=== PATIENT | male | born 1980 | race Caucasian/White ===

== ENCOUNTER 2016-11-25 19:52 | Emergency (ER) | payer OTHER ==
[2016-11-25] MEDS ORDERED: PENICILLIN V POTASSIUM 250 MG TAB As Ordered ONE (22:23)
--- NOTE | 2016-11-25 22:43 | EDDOCDS ---
Nurse's Notes [facility] Name: Dhruv William Age: 36 yrs Sex: Male : 1980 Arrival Date: 11/25/2016 Time: 19:52 Bed I10 / 23 Private MD: NO PRIMARY PHYSICIAN, . Diagnosis: Dental caries;Jaw pain;Disease of jaws, unspecified Presentation: 11/25 19:57 Presenting complaint: Patient states: that he has an abscess in his mouth. Pt states ms18 that it has been there for approx 2 days. Adult Sepsis Screening: The patient does not have new or worsening altered mentation. Patient's respiratory rate is less than 22. Systolic blood pressure is greater than 100. Patient has a qSOFA score of 0- Negative Sepsis Screen. Suicide/Homicide risk assessment- the patient denies having any suicidal and/or homicidal ideations and does not present with any other emotional, behavioral or mental health complaints. Status: Patient is not a electronic sales and service technician or dependent. Transition of care: patient was not received from another setting of care. 19:57 Acuity: JARET Level 4 ms18 19:57 Method Of Arrival: Walkin/Carried/Asstd ms18 Triage Assessment: 19:58 General: Appears in no apparent distress, comfortable, Behavior is appropriate for age, ms18 cooperative. Pain: Location: right buccal mucosa Pain currently is 8 out of 10 on a pain scale. HIV screening NA for this visit Offered previously. Neurological: No deficits noted. EENT: Oral mucosa is moist. Poor dentition noted. Respiratory: Airway is patent Respiratory effort is even, unlabored. Derm: Skin is pink, warm & dry. Historical: - Allergies: no known allergies; - Home Meds: 1. none - PMHx: none; - PSHx: Appendectomy; - Social history: Smoking status: Patient uses tobacco products, current every day smoker. No barriers to communication noted, The patient speaks fluent Pashto. - Family history: Not pertinent. - : The pt / caregiver states he / she is not on anticoagulants. Home medication list is obtained from the patient. - Exposure Risk Screening:: None identified. Screenin:56 Infection Control. dd6 22:38 Screening information is obtained from the patient. Fall risk: No risks identified. [facility] Assistance ADL's: requires no assistance with activities of daily living. Abuse/DV Screen: The patient / caregiver reports he/she is: not in a situation that causes fear, pain or injury. Nutritional screening: No deficits noted. Advance Directives: There is no active DNR order. home support is adequate. Assessment: 22:38 General: Appears in no apparent distress, comfortable, Behavior is appropriate for age, cjh cooperative. General: first contact with patient to review discharge instructions, encouraged and answered questions, denies further needs. Vital Signs: 19:53 BP 148 / 94; Pulse 103; Resp 18 S; Temp 98.1(O); Pulse Ox 98% on R/A; Weight 86.18 kg dd6 (R); Height 5 ft. 10 in. (177.80 cm) (R); Pain 6/10; 22:26 BP 145 / 91; Pulse 88 MON; Resp 18 S; Temp 98.4(TE); Pulse Ox 95% on R/A; Pain 8/10; cln 19:53 Body Mass Index 27.26 (86.18 kg, 177.80 cm) dd6 Vitals: 19:53 Log In Time: November 25, 2016 at 19:53. dd6 ED Course: 19:53 Patient visited by Philip Valdes PCA. dd6 19:53 NO PRIMARY PHYSICIAN, . is Private Physician. dd6 19:53 Patient moved to Waiting dd6 19:54 Patient visited by Philip Valdes PCA. dd6 19:54 Patient moved to Pre RCE dd6 19:58 Triage Initiated ms18 21:54 [facility]. ke 21:54 Patient visited by Ashok Roldan FNP. ke 21:54 Patient visited by Ashok Roldan FNP. ke 21:54 Patient moved to 23 ar3 22:08 Your, Dentist is Referral Physician. ke 22:27 Patient visited by pOhelia Caballero PCA. cln 22:35 [facility] [place] Agreement was scanned into [employer] and attached to record. gjb 22:38 The patient / caregiver is instructed regarding the plan of care and ED course. cj 22:38 No IV's were initiated during this patient's visit. No procedures done that require [facility] assistance. Administered Medications: 22:38 Drug: Penicillin VK 500 mg [penicillin V potassium 250 mg tablet (2 tabs)] Route: PO; [facility] 22:38 Drug: oxyCODONE-acetaminophen 4 pack 1 packets [oxycodone-acetaminophen 5 mg-325 mg [facility] tablet (1 tabs)] {Co-Signature: lf1 (Chica Garcia RN).} Route: PO; Order Results: There are currently no results for this order. Outcome: 22:09 Discharge ordered by Provider. 22:38 Discharge Assessment: Patient awake, alert and oriented x 3. No cognitive and/or [facility] functional deficits noted. Patient verbalized understanding of disposition instructions. patient administered narcotics - yes. Pt provided with safe discharge. The following High Risk Discharge criteria are identified: None. Discharged to home ambulatory. Condition: good Condition: stable. Discharge instructions given to patient, Instructed on discharge instructions, follow up and referral plans. medication usage, no driving heavy equipment, no drinking with medication. No special radiology studies were completed. Property :Personal belongings accompany Pt. 22:42 Patient left the ED. [facility] Signatures: Ashok Roldan, Philip Erickson, UMBRELLA REPAIRER UMBRELLA REPAIRER dd6 Vy Mcadams, UMBRELLA REPAIRER UMBRELLA REPAIRER ar3 Vivian Caldwell RN RN [facility] Leticia Matute RN RN ms18 Yee Marquez Crystal, UMBRELLA REPAIRER UMBRELLA REPAIRER cln Chica Garcia RN lf1 MTDD
--- NOTE | 2016-11-25 22:43 | EDDOCDS ---
Physician Documentation [facility] Name: Dhruv William Age: 36 yrs Sex: Male : 1980 Arrival Date: 11/25/2016 Time: 19:52 Bed I10 23 Private MD: NO PRIMARY PHYSICIAN, . Disposition: 11/25/16 22:09 Discharged to Home/Self Care. Impression: Dental caries, Jaw pain, Disease of jaws, unspecified. - Condition is Stable. - Discharge Instructions: Dental Pain. - Prescriptions for Percocet 5- 325 mg Oral Tablet - take 1 tablet by ORAL route every 6 hours As needed MDD: 4 tabs; 20 tablet. penicillin V potassium 500 mg Oral Tablet - take 1 tablet by ORAL route 4 times per day for 10 days; 40 tablet. - Medication Reconciliation, Local Pharmacy Hours form. - Follow up: Your, Dentist; When: Call to arrange an appointment; Reason: Recheck today's complaints, Continuance of care. - Problem is an ongoing problem. - Symptoms are unchanged. Historical: - Allergies: no known allergies; - Home Meds: 1. none - PMHx: none; - PSHx: Appendectomy; - Social history: Smoking status: Patient uses tobacco products, current every day smoker. No barriers to communication noted, The patient speaks fluent Greek. - Family history: Not pertinent. - : The pt / caregiver states he / she is not on anticoagulants. Home medication list is obtained from the patient. - Exposure Risk Screening:: None identified. Vital Signs: 11/25 19:53 BP 148 / 94; Pulse 103; Resp 18 S; Temp 98.1(O); Pulse Ox 98% on R/A; Weight 86.18 kg / dd6 189.99 lbs (R); Height 5 ft. 10 in. (177.80 cm) (R); Pain 6/10; 22:26 BP 145 / 91; Pulse 88 MON; Resp 18 S; Temp 98.4(TE); Pulse Ox 95% on R/A; Pain 8/10; cln 19:53 Body Mass Index 27.26 (86.18 kg, 177.80 cm) dd6 MDM: 22:12 Penicillin VK 500 mg PO once ordered. ke 22:12 oxyCODONE-acetaminophen 4 pack 5 mg-325 mg 1 packets PO once; Dispense with pt, take as ke per instruction on package ordered. 22:35 [facility] Payment Agreement was scanned into [employer] and attached to record. shannon 22:35 Financial registration complete. shannon Administered Medications: 22:38 Drug: Penicillin VK 500 mg [penicillin V potassium 250 mg tablet (2 tabs)] Route: PO; [facility] 22:38 Drug: oxyCODONE-acetaminophen 4 pack 1 packets [oxycodone-acetaminophen 5 mg-325 mg cj tablet (1 tabs)] {Co-Signature: lf1 (Chica Garcia RN).} Route: PO; Signatures: Ashok Roldan FNP FNP ke Hafner, Jane, RN RN Leticia Griffith RN RN ms18 Yee Marquez RN lf1 The chart was reviewed and I authenticate all verbal orders and agree with the evaluation and treatment provided.Attachments: 22:35 [facility] Payment Agreement shannon MTDD
--- NOTE | 2016-11-27 23:43 | EDDOCDS ---
Nurse's Notes [facility] Name: Dhruv William Age: 36 yrs Sex: Male : 1980 Arrival Date: 11/25/2016 Time: 19:52 Bed I10 / 23 Private MD: NO PRIMARY PHYSICIAN, . Diagnosis: Dental caries;Jaw pain;Disease of jaws, unspecified Presentation: 11/25 19:57 Presenting complaint: Patient states: that he has an abscess in his mouth. Pt states ms18 that it has been there for approx 2 days. Adult Sepsis Screening: The patient does not have new or worsening altered mentation. Patient's respiratory rate is less than 22. Systolic blood pressure is greater than 100. Patient has a qSOFA score of 0- Negative Sepsis Screen. Suicide/Homicide risk assessment- the patient denies having any suicidal and/or homicidal ideations and does not present with any other emotional, behavioral or mental health complaints. Status: Patient is not a home service technician or dependent. Transition of care: patient was not received from another setting of care. 19:57 Acuity: JARET Level 4 ms18 19:57 Method Of Arrival: Walkin/Carried/Asstd ms18 Triage Assessment: 19:58 General: Appears in no apparent distress, comfortable, Behavior is appropriate for age, ms18 cooperative. Pain: Location: right buccal mucosa Pain currently is 8 out of 10 on a pain scale. HIV screening NA for this visit Offered previously. Neurological: No deficits noted. EENT: Oral mucosa is moist. Poor dentition noted. Respiratory: Airway is patent Respiratory effort is even, unlabored. Derm: Skin is pink, warm & dry. Historical: - Allergies: no known allergies; - Home Meds: 1. none - PMHx: none; - PSHx: Appendectomy; - Social history: Smoking status: Patient uses tobacco products, current every day smoker. No barriers to communication noted, The patient speaks fluent Uzbek. - Family history: Not pertinent. - : The pt / caregiver states he / she is not on anticoagulants. Home medication list is obtained from the patient. - Exposure Risk Screening:: None identified. Screenin:56 Infection Control. dd6 22:38 Screening information is obtained from the patient. Fall risk: No risks identified. [facility] Assistance ADL's: requires no assistance with activities of daily living. Abuse/DV Screen: The patient / caregiver reports he/she is: not in a situation that causes fear, pain or injury. Nutritional screening: No deficits noted. Advance Directives: There is no active DNR order. home support is adequate. Assessment: 22:38 General: Appears in no apparent distress, comfortable, Behavior is appropriate for age, cjh cooperative. General: first contact with patient to review discharge instructions, encouraged and answered questions, denies further needs. Vital Signs: 19:53 BP 148 / 94; Pulse 103; Resp 18 S; Temp 98.1(O); Pulse Ox 98% on R/A; Weight 86.18 kg dd6 (R); Height 5 ft. 10 in. (177.80 cm) (R); Pain 6/10; 22:26 BP 145 / 91; Pulse 88 MON; Resp 18 S; Temp 98.4(TE); Pulse Ox 95% on R/A; Pain 8/10; cln 19:53 Body Mass Index 27.26 (86.18 kg, 177.80 cm) dd6 Vitals: 19:53 Log In Time: November 25, 2016 at 19:53. dd6 ED Course: 19:53 Patient visited by Philip Valdes PCA. dd6 19:53 NO PRIMARY PHYSICIAN, . is Private Physician. dd6 19:53 Patient moved to Waiting dd6 19:54 Patient visited by Philip Valdes PCA. dd6 19:54 Patient moved to Pre RCE dd6 19:58 Triage Initiated ms18 21:54 [facility]. ke 21:54 Patient visited by Ashok Roldan FNP. ke 21:54 Patient visited by Ashok Roldan FNP. ke 21:54 Patient moved to I10 23 ar3 22:08 Your, Dentist is Referral Physician. ke 22:27 Patient visited by Ophelia Caballero PCA. cln 22:35 [facility] Payment Agreement was scanned into [employer] and attached to record. gjb 22:38 The patient / caregiver is instructed regarding the plan of care and ED course. [facility] 22:38 No IV's were initiated during this patient's visit. No procedures done that require [facility] assistance. 11/26 01:45 T-Sheet-- Draft Copy was scanned into [employer] and attached to record. lja Administered Medications: 11/25 22:38 Drug: Penicillin VK 500 mg [penicillin V potassium 250 mg tablet (2 tabs)] Route: PO; [facility] 22:38 Drug: oxyCODONE-acetaminophen 4 pack 1 packets [oxycodone-acetaminophen 5 mg-325 mg cjh tablet (1 tabs)] {Co-Signature: lf1 (Chica Garcia RN).} Route: PO; Order Results: There are currently no results for this order. Outcome: 22:09 Discharge ordered by Provider. ke 22:38 Discharge Assessment: Patient awake, alert and oriented x 3. No cognitive and/or [facility] functional deficits noted. Patient verbalized understanding of disposition instructions. patient administered narcotics - yes. Pt provided with safe discharge. The following High Risk Discharge criteria are identified: None. Discharged to home ambulatory. Condition: good Condition: stable. Discharge instructions given to patient, Instructed on discharge instructions, follow up and referral plans. medication usage, no driving heavy equipment, no drinking with medication. No special radiology studies were completed. Property :Personal belongings accompany Pt. 22:42 Patient left the ED. [facility] Signatures: Ashok Roldan, FORMING PROCESS WORKER FORMING PROCESS WORKER Philip Rivera, VESSEL ORDINARY SEAMAN VESSEL ORDINARY SEAMAN dd6 Vy Mcadams, VESSEL ORDINARY SEAMAN VESSEL ORDINARY SEAMAN ar3 Vivian Caldwell RN RN [facility] Leticia Matute RN RN ms18 Areisidra, Yee Bryan Crystal, VESSEL ORDINARY SEAMAN VESSEL ORDINARY SEAMAN cln Chica Garcia RN lf1 Chart Complete MTDD
--- NOTE | 2016-11-27 23:43 | EDDOCDS ---
Physician Documentation [facility] Name: Dhruv William Age: 36 yrs Sex: Male : 1980 Arrival Date: 11/25/2016 Time: 19:52 Bed I10 23 Private MD: NO PRIMARY PHYSICIAN, . Disposition: 11/25/16 22:09 Discharged to Home/Self Care. Impression: Dental caries, Jaw pain, Disease of jaws, unspecified. - Condition is Stable. - Discharge Instructions: Dental Pain. - Prescriptions for Percocet 5- 325 mg Oral Tablet - take 1 tablet by ORAL route every 6 hours As needed MDD: 4 tabs; 20 tablet. penicillin V potassium 500 mg Oral Tablet - take 1 tablet by ORAL route 4 times per day for 10 days; 40 tablet. - Medication Reconciliation, Local Pharmacy Hours form. - Follow up: Your, Dentist; When: Call to arrange an appointment; Reason: Recheck today's complaints, Continuance of care. - Problem is an ongoing problem. - Symptoms are unchanged. Historical: - Allergies: no known allergies; - Home Meds: 1. none - PMHx: none; - PSHx: Appendectomy; - Social history: Smoking status: Patient uses tobacco products, current every day smoker. No barriers to communication noted, The patient speaks fluent Greek. - Family history: Not pertinent. - : The pt / caregiver states he / she is not on anticoagulants. Home medication list is obtained from the patient. - Exposure Risk Screening:: None identified. Vital Signs: 11/25 19:53 BP 148 / 94; Pulse 103; Resp 18 S; Temp 98.1(O); Pulse Ox 98% on R/A; Weight 86.18 kg / dd6 189.99 lbs (R); Height 5 ft. 10 in. (177.80 cm) (R); Pain 6/10; 22:26 BP 145 / 91; Pulse 88 MON; Resp 18 S; Temp 98.4(TE); Pulse Ox 95% on R/A; Pain 8/10; cln 19:53 Body Mass Index 27.26 (86.18 kg, 177.80 cm) dd6 MDM: 22:12 Penicillin VK 500 mg PO once ordered. ke 22:12 oxyCODONE-acetaminophen 4 pack 5 mg-325 mg 1 packets PO once; Dispense with pt, take as ke per instruction on package ordered. 22:35 [facility] Payment Agreement was scanned into [employer] and attached to record. [facility] 22:35 Financial registration complete. [facility] 11/26 01:45 T-Sheet-- Draft Copy was scanned into [employer] and attached to record. lja Administered Medications: 11/25 22:38 Drug: Penicillin VK 500 mg [penicillin V potassium 250 mg tablet (2 tabs)] Route: PO; cjh 22:38 Drug: oxyCODONE-acetaminophen 4 pack 1 packets [oxycodone-acetaminophen 5 mg-325 mg cjh tablet (1 tabs)] {Co-Signature: lf1 (Chica Garcia RN).} Route: PO; Signatures: Ashok Roldan FNP FNP ke Hafner, JaneRN ESTELLE [facility] Leticia Matute RN RN ms18 Arel, Yee Bryan [facility] Chica Garcia RN lf1 The chart was reviewed and I authenticate all verbal orders and agree with the evaluation and treatment provided.Attachments: 22:35 [facility] Payment Agreement [facility] 11/26 01:45 T-Sheet-- Draft Copy richard Chart Complete MTDD
--- NOTE | 2016-11-27 23:43 | EDDOCDS ---
Physician Documentation [facility] Name: Dhruv William Age: 36 yrs Sex: Male : 1980 Arrival Date: 11/25/2016 Time: 19:52 Bed I10 23 Private MD: NO PRIMARY PHYSICIAN, . Disposition: 11/25/16 22:09 Discharged to Home/Self Care. Impression: Dental caries, Jaw pain, Disease of jaws, unspecified. - Condition is Stable. - Discharge Instructions: Dental Pain. - Prescriptions for Percocet 5- 325 mg Oral Tablet - take 1 tablet by ORAL route every 6 hours As needed MDD: 4 tabs; 20 tablet. penicillin V potassium 500 mg Oral Tablet - take 1 tablet by ORAL route 4 times per day for 10 days; 40 tablet. - Medication Reconciliation, Local Pharmacy Hours form. - Follow up: Your, Dentist; When: Call to arrange an appointment; Reason: Recheck today's complaints, Continuance of care. - Problem is an ongoing problem. - Symptoms are unchanged. Historical: - Allergies: no known allergies; - Home Meds: 1. none - PMHx: none; - PSHx: Appendectomy; - Social history: Smoking status: Patient uses tobacco products, current every day smoker. No barriers to communication noted, The patient speaks fluent Prydeinig. - Family history: Not pertinent. - : The pt / caregiver states he / she is not on anticoagulants. Home medication list is obtained from the patient. - Exposure Risk Screening:: None identified. Vital Signs: 11/25 19:53 BP 148 / 94; Pulse 103; Resp 18 S; Temp 98.1(O); Pulse Ox 98% on R/A; Weight 86.18 kg / dd6 189.99 lbs (R); Height 5 ft. 10 in. (177.80 cm) (R); Pain 6/10; 22:26 BP 145 / 91; Pulse 88 MON; Resp 18 S; Temp 98.4(TE); Pulse Ox 95% on R/A; Pain 8/10; cln 19:53 Body Mass Index 27.26 (86.18 kg, 177.80 cm) dd6 MDM: 22:12 Penicillin VK 500 mg PO once ordered. ke 22:12 oxyCODONE-acetaminophen 4 pack 5 mg-325 mg 1 packets PO once; Dispense with pt, take as ke per instruction on package ordered. 22:35 [facility] Payment Agreement was scanned into [employer] and attached to record. [facility] 22:35 Financial registration complete. [facility] 11/26 01:45 T-Sheet-- Draft Copy was scanned into [employer] and attached to record. lja Administered Medications: 11/25 22:38 Drug: Penicillin VK 500 mg [penicillin V potassium 250 mg tablet (2 tabs)] Route: PO; cjh 22:38 Drug: oxyCODONE-acetaminophen 4 pack 1 packets [oxycodone-acetaminophen 5 mg-325 mg cjh tablet (1 tabs)] {Co-Signature: lf1 (Chica Garcia RN).} Route: PO; Signatures: Ashok Roldan FNP FNP ke Hafner, JaneRN ESTELLE [facility] Leticia Matute RN RN ms18 Arel, Yee Bryan [facility] Chica Garcia RN lf1 The chart was reviewed and I authenticate all verbal orders and agree with the evaluation and treatment provided.Attachments: 22:35 [facility] Payment Agreement [facility] 11/26 01:45 T-Sheet-- Draft Copy richard Chart Complete MTDD
== END 2016-11-25 22:42 | disposition home or self-care (01) ==
LOC: M ED 19:52
DX: K04.7 Periapical abscess without sinus (principal); G50.1 Atypical facial pain; K08.9 Disorder of teeth and supporting structures, unspecified; R68.84 Jaw pain; Z90.89 Acquired absence of other organs; Z72.0 Tobacco use

== ENCOUNTER 2016-12-08 12:37 | Emergency (ER) | payer OTHER ==
[2016-12-08] MEDS ORDERED: ISOVUE-370 76% 100ML VIAL (Q9967) As Ordered ONE (14:04)
[2016-12-08] MEDS ORDERED: NORCO, ANEXSIA 5/325MG TABLET (HYDROcodone/ACETAMINOPHEN) As Ordered ONE (14:06)
[2016-12-08] MEDS ORDERED: ZOSYN 3.375 GM VIAL (J2543) As Ordered ONE (14:06)
[2016-12-08 14:10] LABS: BASO # 0.1 K/mm3 (0.0-0.2); BASO % 1.3 % (0.0-1.0); EOS # 0.4 K/mm3 (0.0-0.50); EOS % 5.1 % (0.0-3.0); LARGE UNSTAINED CELL # 0.2 K/mm3 (0.0-0.4); LARGE UNSTAINED CELL % 2.2 % (0.0-4.0); LYMPH # 2.4 K/mm3 (1.5-4.5); LYMPH % 29.1 % (24.0-44.0); MEAN CORPUSCULAR HEMOGLOBIN 29.5 pg (27.0-33.0); MEAN CORPUSCULAR HGB CONC 33.9 g/dl (32.0-36.5); MEAN CORPUSCULAR VOLUME 87.1 fl (80.0-96.0); MONO # 0.5 K/mm3 (0.0-0.8); MONO % 5.6 % (0.0-5.0); NEUTROPHILS # 4.6 K/mm3 (1.8-7.7); NEUTROPHILS % 56.7 % (36.0-66.0); PLATELET COUNT, AUTOMATED 280 k/mm3 (150-450); RED CELL DISTRIBUTION WIDTH 12.9 % (11.5-14.5); WHITE BLOOD COUNT 8.2 K/mm3 (4.0-10.0)
--- NOTE | 2016-12-08 14:36 | REP ---
Clinical: Right facial swelling. Technique: Axial contrast enhanced images from the skull base to the thoracic inlet with coronal and sagittal re-formations using 100 ml Isovue 370 intravenous contrast material. Findings: The subcutaneous tissues appear relatively symmetric and normal by CT evaluation. No significant subcutaneous infiltration / stranding or edematous changes are appreciated. The bilateral periorbital soft tissues are symmetric and normal. Orbits including globes and intraconal contents are symmetric and unremarkable. The nasopharyngeal through hypopharyngeal airway appears patent, midline and without associated mass effect. No parapharyngeal or retropharyngeal soft tissue swelling is appreciated. The bilateral parapharyngeal fat pads are symmetric and normal. Cervical chain lymph nodes appear mildly prominent measuring up to 13 mm maximal diameter and should be correlated with physical examination to exclude an infectious process. The parotid, submandibular, and submental glands are symmetric and normal. The vasculature is symmetric and unremarkable. The osseous structures are intact without evidence for acute fracture or dislocation. Sinuses demonstrate minimal mucosal thickening to the right ethmoid and sphenoid sinus minimal thickening to the left maxillary sinus suggesting mild chronic sinus disease. No fluid level is appreciated. Impression: Mild prominent bilateral cervical lymph nodes should be correlated with physical examination. Otherwise normal examination. Signed by Kirill Delgado MD 12/08/2016 02:27 P
[2016-12-08 14:54] LABS: ERYTHROCYTE SEDIMENTATION RATE 2 mm/hr (0-15)
--- NOTE | 2016-12-08 16:57 | EDDOCDS ---
Physician Documentation [facility] Name: Dhruv William Age: 36 yrs Sex: Male : 1980 Arrival Date: 12/08/2016 Time: 12:37 Bed I9 / 22 Private MD: NO PRIMARY PHYSICIAN, . Disposition: 12/08 16:44 Critical Care: Critical care not applicable. le Disposition: 12/08/16 16:41 Discharged to Home/Self Care. Impression: Jaw pain, Dental caries. - Condition is Stable. - Discharge Instructions: Dental Pain. - Prescriptions for Augmentin 875- 125 mg Oral Tablet - take 1 tablet by ORAL route every 12 hours for 10 days; 20 tablet. [place] 5- 325 mg Oral Tablet - take 1 tablet by ORAL route every 6 hours As needed MDD: 4 tabs; 6 tablet. - Medication Reconciliation, Local Pharmacy Hours, Dental Referral List form. - Follow up: Tirso Julian; When: Call to arrange an appointment; Reason: Recheck today's complaints, Continuance of care. - Problem is an ongoing problem. - Symptoms have improved. - Notes: You need to take the antibiotic as directed. DO NOT SKIP DOSES! Use the referral list, to get a dental appointment. Make this appointment even if they say it's going to be "weeks". Return to the ED for worsening pain, inability to open your mouth more than the width of 2 finders, worsening swelling, fever >101.5, difficulty swallowing/drooling, difficulty breathing or any other concerns Historical: - Allergies: no known allergies; - Home Meds: 1. none - PMHx: none; - PSHx: Appendectomy; - Social history: Smoking status: Patient uses tobacco products, light tobacco smoker. No barriers to communication noted, The patient speaks fluent Moldovan. - Family history: No immediate family members are acutely ill. - : The pt / caregiver states he / she is not on anticoagulants. Home medication list is obtained from the patient. - Exposure Risk Screening:: None identified. Vital Signs: 12:39 BP 157 / 95; Pulse 82; Resp 18; Temp 98.8; Pulse Ox 99% ; Weight 94.8 kg / 209 lbs; elp Height 5 ft. 11 in. (180.34 cm); Pain 10/10; 15:47 BP 154 / 84 RA Sitting (auto/reg); Pulse 81; Resp 18; Temp 98.0(TE); Pulse Ox 98% on jrd R/A; Pain 8/10; 16:55 BP 164 / 94; Pulse 18; Resp 79; Temp 97.8; Pulse Ox 98% ; Pain 2/10; hs1 12:39 Body Mass Index 29.15 (94.80 kg, 180.34 cm) elp MDM: 13:46 IV Saline Lock ordered. le 13:46 Piperacillin-Tazobactam 3.375 grams IVPB once over 30 mins; dilute in 50mL of NS or D5W le ordered. 13:46 HYDROcodone-acetaminophen 5 mg-325 mg 1 tabs PO once ordered. le 13:47 CT Neck With Contrast Ordered. EDMS 13:47 CBC with Diff Ordered. EDMS 13:47 CRP Ordered. EDMS 13:47 ESR Ordered. EDMS 14:50 CBC with Diff Reviewed. le 14:50 CRP Reviewed. le 15:11 [facility] Payment Agreement was scanned into [employer] and attached to record. 5 15:11 Financial registration complete. jp5 16:39 CBC with Diff Reviewed. le 16:39 ESR Reviewed. le 16:39 CT Neck With Contrast Reviewed. le Administered Medications: 14:18 Drug: Piperacillin-Tazobactam 3.375 grams [piperacillin-tazobactam 3.375 gram ms2 intravenous solution] Route: IVPB; Infused Over: 30 mins; Site: left antecubital; 14:18 Drug: HYDROcodone-acetaminophen 1 tabs [hydrocodone 5 mg-acetaminophen 325 mg tablet (1 ms2 tabs)] Route: PO; Signatures: Dispatcher [employer] EDMS Chica Green, JAPANESE INTERPRETER JAPANESE INTERPRETER Perla CabreraRN RN rs3 Josette Chacon RN RN hs1 Silvana Velazco jp5 Ru Boston RN ms2 The chart was reviewed and I authenticate all verbal orders and agree with the evaluation and treatment provided.Attachments: 15:11 [facility] Payment Agreement jp5 MTDD
--- NOTE | 2016-12-08 16:57 | EDDOCDS ---
Nurse's Notes [facility] Name: Dhruv William Age: 36 yrs Sex: Male : 1980 Arrival Date: 12/08/2016 Time: 12:37 Bed I9 / 22 Private MD: NO PRIMARY PHYSICIAN, . Diagnosis: Jaw pain;Dental caries Presentation: 12/08 12:45 Presenting complaint: Patient states: runny nose, cough, muscle ache and vomiting for 3 rs3 days. not resolved with NyQuil and ibuprofen. Adult Sepsis Screening: The patient does not have new or worsening altered mentation. Patient's respiratory rate is less than 22. Systolic blood pressure is greater than 100. Patient has a qSOFA score of 0- Negative Sepsis Screen. Suicide/Homicide risk assessment- the patient denies having any suicidal and/or homicidal ideations and does not present with any other emotional, behavioral or mental health complaints. Status: Patient is not a statement services representative or dependent. Transition of care: patient was not received from another setting of care. 12:45 Acuity: JARET Level 4 rs3 12:45 Method Of Arrival: Walkin/Carried/Asstd rs3 Triage Assessment: 12:47 General: Appears in no apparent distress. Pain: Location: generalized. Pt Declines HIV rs3 testing. Historical: - Allergies: no known allergies; - Home Meds: 1. none - PMHx: none; - PSHx: Appendectomy; - Social history: Smoking status: Patient uses tobacco products, light tobacco smoker. No barriers to communication noted, The patient speaks fluent [place]. - Family history: No immediate family members are acutely ill. - : The pt / caregiver states he / she is not on anticoagulants. Home medication list is obtained from the patient. - Exposure Risk Screening:: None identified. Screenin:39 Infection Control. elp 14:21 Screening information is obtained from prior medical records. Fall risk: No risks ms2 identified. Assistance ADL's: requires no assistance with activities of daily living. Abuse/DV Screen: The patient / caregiver reports he/she is: not in a situation that causes fear, pain or injury. Nutritional screening: No deficits noted. Advance Directives: Currently, there is no health care proxy. There is no active DNR order. There is no living will. There is no Power of Retirement Administrator. Advance directive information has not previously been placed in an [facility] medical record. Further advance directive information is declined. home support is adequate. Assessment: 14:19 Adult Sepsis Screening: The patient does not have new or worsening altered mentation. ms2 Patient's respiratory rate is less than 22. Systolic blood pressure is greater than 100. Patient has a qSOFA score of 0- Negative Sepsis Screen. General: Appears uncomfortable, Behavior is cooperative. General: medicated for pain per order. Pain: Pain currently is 9 out of 10 on a pain scale. Neurological: Level of Consciousness is awake, alert, obeys commands. Respiratory: No deficits noted. Airway is patent Respiratory effort is even, unlabored, Respiratory pattern is regular, symmetrical. GI: Abdomen is flat, non- distended. Derm: Skin is pink, warm & dry. Musculoskeletal: Range of motion intact in all extremities. 15:15 General: Appears in no apparent distress, appears more comfortable. Pain: Pain ms2 currently is 8 out of 10 on a pain scale. Neurological: No deficits noted. Respiratory: No deficits noted. Derm: Skin is pink, warm & dry. 15:42 Reassessment: Patient appears in no apparent distress at this time. Patient resting in hs1 stretcher aware of waiting for CT results. Patient states he is in 7/10 pain at present. No other needs noted. Patient appears comfortable texting on stretcher with no other needs at present. . 16:54 Reassessment: Patient appears in no apparent distress at this time. Patient states hs1 feeling better. Patient states symptoms have improved. Vital Signs: 12:39 BP 157 / 95; Pulse 82; Resp 18; Temp 98.8; Pulse Ox 99% ; Weight 94.8 kg; Height 5 ft. elp 11 in. (180.34 cm); Pain 10/10; 15:47 BP 154 / 84 RA Sitting (auto/reg); Pulse 81; Resp 18; Temp 98.0(TE); Pulse Ox 98% on jrd R/A; Pain 8/10; 16:55 BP 164 / 94; Pulse 18; Resp 79; Temp 97.8; Pulse Ox 98% ; Pain 2/10; hs1 12:39 Body Mass Index 29.15 (94.80 kg, 180.34 cm) [facility] Vitals: 12:39 Log In Time: December 08, 2016 at 12:36. elp ED Course: 12:38 Patient visited by Lora Lynn PCA. elp 12:38 NO PRIMARY PHYSICIAN, . is Private Physician. elp 12:38 Patient moved to Waiting elp 12:39 Patient visited by Lora Lynn PCA. elp 12:39 Patient moved to Pre RCE elp 12:47 Triage Initiated rs3 13:12 Chica Green FNP is PHCP. le 13:12 Patient moved to I / mcp 13:34 Patient visited by Chica Green FNP. le 13:34 Patient visited by Chica Green FNP. le 14:01 Patient visited by Ru Boston,ESTELLE. ms2 14:01 ESR Sent. ms2 14:01 CRP Sent. ms2 14:01 CBC with Diff Sent. ms2 14:01 Inserted saline lock: 20 gauge in left antecubital area The patient tolerated the ms2 procedure well. 14:18 Patient visited by Ru Boston,ESTELLE. ms2 14:21 No procedures done that require assistance. ms2 14:53 Patient visited by Leticia Matute RN. ms18 15:06 CT Neck With Contrast Returned. EDMS 15:11 [facility] Payment Agreement was scanned into [employer] and attached to record. jp5 15:15 The patient / caregiver is instructed regarding the plan of care and ED course. ms2 15:42 Patient visited by Josette Chacon, ESTELLE. hs1 15:48 Patient visited by Wiley Hoang PCA. jrd 15:56 Patient visited by Ru Boston,ESTELLE. ms2 16:41 Tirso Julian is Referral Physician. le 16:54 Discontinued IV lock intact, bleeding controlled, pressure dressing applied, No hs1 redness/swelling at site. Administered Medications: 14:18 Drug: Piperacillin-Tazobactam 3.375 grams [piperacillin-tazobactam 3.375 gram ms2 intravenous solution] Route: IVPB; Infused Over: 30 mins; Site: left antecubital; 14:18 Drug: HYDROcodone-acetaminophen 1 tabs [hydrocodone 5 mg-acetaminophen 325 mg tablet (1 ms2 tabs)] Route: PO; Order Results: Lab Order: CBC with Diff; SPEC'M 01/15/17 13:55 Test: WHITE BLOOD COUNT; Value: 8.2; Range: 4.0-10.0; Units: K/mm3; Status: F Test: RED BLOOD COUNT; Value: 5.46; Range: 4.30-6.10; Units: M/mm3; Status: F Test: HEMOGLOBIN; Value: 16.1; Range: 14.0-18.0; Units: g/dl; Status: F Test: HEMATOCRIT; Value: 47.6; Range: 42.0-52.0; Units: %; Status: F Test: MEAN CORPUSCULAR VOLUME; Value: 87.1; Range: 80.0-96.0; Units: fl; Status: F Test: MEAN CORPUSCULAR HEMOGLOBIN; Value: 29.5; Range: 27.0-33.0; Units: pg; Status: F Test: MEAN CORPUSCULAR HGB CONC; Value: 33.9; Range: 32.0-36.5; Units: g/dl; Status: F Test: RED CELL DISTRIBUTION WIDTH; Value: 12.9; Range: 11.5-14.5; Units: %; Status: F Test: PLATELET COUNT, AUTOMATED; Value: 280; Range: 150-450; Units: k/mm3; Status: F Test: NEUTROPHILS %; Value: 56.7; Range: 36.0-66.0; Units: %; Status: F Test: LYMPH %; Value: 29.1; Range: 24.0-44.0; Units: %; Status: F Test: MONO %; Value: 5.6; Range: 0.0-5.0; Abnormal: Above high normal; Units: %; Status: F Test: EOS %; Value: 5.1; Range: 0.0-3.0; Abnormal: Above high normal; Units: %; Status: F Test: BASO %; Value: 1.3; Range: 0.0-1.0; Abnormal: Above high normal; Units: %; Status: F Test: LARGE UNSTAINED CELL %; Value: 2.2; Range: 0.0-4.0; Units: %; Status: F Test: NEUTROPHILS #; Value: 4.6; Range: 1.8-7.7; Units: K/mm3; Status: F Test: LYMPH #; Value: 2.4; Range: 1.5-4.5; Units: K/mm3; Status: F Test: MONO #; Value: 0.5; Range: 0.0-0.8; Units: K/mm3; Status: F Test: EOS #; Value: 0.4; Range: 0.0-0.50; Units: K/mm3; Status: F Test: BASO #; Value: 0.1; Range: 0.0-0.2; Units: K/mm3; Status: F Test: LARGE UNSTAINED CELL #; Value: 0.2; Range: 0.0-0.4; Units: K/mm3; Status: F Lab Order: CRP; SPEC'M 12/08/16 13:55 Test: C REACTIVE PROTEIN QUANTITATIV; Value: 0.62; Range: 0.00-0.30; Abnormal: Above high normal; Units: MG/DL; Status: F Lab Order: ESR; SPEC'M 12/08/16 13:55 Test: ERYTHROCYTE SEDIMENTATION RATE; Value: 2; Range: 0-15; Units: mm/hr; Status: F Radiology Order: CT Neck With Contrast Test: CT Neck With Contrast REASON FOR EXAMINATION: right facial swelling, dev. trismus; Clinical: Right facial swelling.; ; Technique: Axial contrast enhanced images from the skull base to the thoracic; inlet with coronal and sagittal re-formations using 100 ml Isovue 370 intravenous; contrast material.; ; Findings:; The subcutaneous tissues appear relatively symmetric and normal by CT evaluation.; No significant subcutaneous infiltration / stranding or edematous changes are; appreciated. The bilateral periorbital soft tissues are symmetric and normal.; Orbits including globes and intraconal contents are symmetric and unremarkable.; The nasopharyngeal through hypopharyngeal airway appears patent, midline and; without associated mass effect. No parapharyngeal or retropharyngeal soft tissue; swelling is appreciated. The bilateral parapharyngeal fat pads are symmetric and; normal. Cervical chain lymph nodes appear mildly prominent measuring up to 13 mm; maximal diameter and should be correlated with physical examination to exclude an; infectious process. The parotid, submandibular, and submental glands are; symmetric and normal. The vasculature is symmetric and unremarkable. The; osseous structures are intact without evidence for acute fracture or dislocation.; Sinuses demonstrate minimal mucosal thickening to the right ethmoid and sphenoid; sinus minimal thickening to the left maxillary sinus suggesting mild chronic; sinus disease. No fluid level is appreciated.; ; Impression:; Mild prominent bilateral cervical lymph nodes should be correlated with physical; examination.; Otherwise normal examination.; ; ; Signed by; Kirill Delgado MD 12/08/2016 02:27 P; Outcome: 16:41 Discharge ordered by Provider. le 16:55 Discharge Assessment: Patient awake, alert and oriented x 3. No cognitive and/or hs1 functional deficits noted. Patient verbalized understanding of disposition instructions. patient administered narcotics - yes. Pt provided with safe discharge. The following High Risk Discharge criteria are identified: None. Discharged to home ambulatory, with family. Condition: stable. Discharge instructions given to patient, family, Instructed on discharge instructions, follow up and referral plans. medication usage, Demonstrated understanding of instructions, medications, Pt was receptive of discharge instructions/ teaching. Prescriptions given X 2. CT Study completed. Property sent home with patient. 16:56 Patient left the ED. hs1 Signatures: Dispatcher [employer] EDMS Ru Boston,RN RN ms2 Ramya Gibson RN RN mcp Chica Green, APIGEE DEVELOPER APIGEE DEVELOPER Perla Cabrera RN RN rs3 Josette Chacon RN RN hs1 Lora Lynn, SLEEVE PRESSER OPERATOR SLEEVE PRESSER OPERATOR Leticia Mcmullen RN RN ms18 Wiley Hoang, SLEEVE PRESSER OPERATOR SLEEVE PRESSER OPERATOR Silvana Mays jp5 MTDD
--- NOTE | 2016-12-10 17:57 | EDDOCDS ---
Nurse's Notes [facility] Name: Dhruv William Age: 36 yrs Sex: Male : 1980 Arrival Date: 12/08/2016 Time: 12:37 Bed I9 / 22 Private MD: NO PRIMARY PHYSICIAN, . Diagnosis: Jaw pain;Dental caries Presentation: 12/08 12:45 Presenting complaint: Patient states: runny nose, cough, muscle ache and vomiting for 3 rs3 days. not resolved with NyQuil and ibuprofen. Adult Sepsis Screening: The patient does not have new or worsening altered mentation. Patient's respiratory rate is less than 22. Systolic blood pressure is greater than 100. Patient has a qSOFA score of 0- Negative Sepsis Screen. Suicide/Homicide risk assessment- the patient denies having any suicidal and/or homicidal ideations and does not present with any other emotional, behavioral or mental health complaints. Status: Patient is not a director of environmental services or dependent. Transition of care: patient was not received from another setting of care. 12:45 Acuity: JARET Level 4 rs3 12:45 Method Of Arrival: Walkin/Carried/Asstd rs3 Triage Assessment: 12:47 General: Appears in no apparent distress. Pain: Location: generalized. Pt Declines HIV rs3 testing. Historical: - Allergies: no known allergies; - Home Meds: 1. none - PMHx: none; - PSHx: Appendectomy; - Social history: Smoking status: Patient uses tobacco products, light tobacco smoker. No barriers to communication noted, The patient speaks fluent Lithuanian. - Family history: No immediate family members are acutely ill. - : The pt / caregiver states he / she is not on anticoagulants. Home medication list is obtained from the patient. - Exposure Risk Screening:: None identified. Screenin:39 Infection Control. elp 14:21 Screening information is obtained from prior medical records. Fall risk: No risks ms2 identified. Assistance ADL's: requires no assistance with activities of daily living. Abuse/DV Screen: The patient / caregiver reports he/she is: not in a situation that causes fear, pain or injury. Nutritional screening: No deficits noted. Advance Directives: Currently, there is no health care proxy. There is no active DNR order. There is no living will. There is no Power of Videogame Designer. Advance directive information has not previously been placed in an [facility] medical record. Further advance directive information is declined. home support is adequate. Assessment: 14:19 Adult Sepsis Screening: The patient does not have new or worsening altered mentation. ms2 Patient's respiratory rate is less than 22. Systolic blood pressure is greater than 100. Patient has a qSOFA score of 0- Negative Sepsis Screen. General: Appears uncomfortable, Behavior is cooperative. General: medicated for pain per order. Pain: Pain currently is 9 out of 10 on a pain scale. Neurological: Level of Consciousness is awake, alert, obeys commands. Respiratory: No deficits noted. Airway is patent Respiratory effort is even, unlabored, Respiratory pattern is regular, symmetrical. GI: Abdomen is flat, non- distended. Derm: Skin is pink, warm & dry. Musculoskeletal: Range of motion intact in all extremities. 15:15 General: Appears in no apparent distress, appears more comfortable. Pain: Pain ms2 currently is 8 out of 10 on a pain scale. Neurological: No deficits noted. Respiratory: No deficits noted. Derm: Skin is pink, warm & dry. 15:42 Reassessment: Patient appears in no apparent distress at this time. Patient resting in hs1 stretcher aware of waiting for CT results. Patient states he is in 7/10 pain at present. No other needs noted. Patient appears comfortable texting on stretcher with no other needs at present. . 16:54 Reassessment: Patient appears in no apparent distress at this time. Patient states hs1 feeling better. Patient states symptoms have improved. Vital Signs: 12:39 BP 157 / 95; Pulse 82; Resp 18; Temp 98.8; Pulse Ox 99% ; Weight 94.8 kg; Height 5 ft. elp 11 in. (180.34 cm); Pain 10/10; 15:47 BP 154 / 84 RA Sitting (auto/reg); Pulse 81; Resp 18; Temp 98.0(TE); Pulse Ox 98% on jrd R/A; Pain 8/10; 16:55 BP 164 / 94; Pulse 18; Resp 79; Temp 97.8; Pulse Ox 98% ; Pain 2/10; hs1 12:39 Body Mass Index 29.15 (94.80 kg, 180.34 cm) [facility] Vitals: 12:39 Log In Time: December 08, 2016 at 12:36. elp ED Course: 12:38 Patient visited by Lora Lynn PCA. elp 12:38 NO PRIMARY PHYSICIAN, . is Private Physician. elp 12:38 Patient moved to Waiting elp 12:39 Patient visited by Lora Lynn PCA. elp 12:39 Patient moved to Pre RCE elp 12:47 Triage Initiated rs3 13:12 Chica Green FNP is PHCP. le 13:12 Patient moved to I9 / mcp 13:34 Patient visited by Chica Green FNP. le 13:34 Patient visited by Chica Green FNP. le 14:01 Patient visited by Ru Boston,ESTELLE. ms2 14:01 ESR Sent. ms2 14:01 CRP Sent. ms2 14:01 CBC with Diff Sent. ms2 14:01 Inserted saline lock: 20 gauge in left antecubital area The patient tolerated the ms2 procedure well. 14:18 Patient visited by Ru Boston,ESTELLE. ms2 14:21 No procedures done that require assistance. ms2 14:53 Patient visited by Leticia Matute RN. ms18 15:06 CT Neck With Contrast Returned. EDMS 15:11 [facility] Payment Agreement was scanned into [employer] and attached to record. jp5 15:15 The patient / caregiver is instructed regarding the plan of care and ED course. ms2 15:42 Patient visited by Josette Chacon, ESTELLE. hs1 15:48 Patient visited by Wiley Hoang PCA. jrd 15:56 Patient visited by Ru Boston,ESTELLE. ms2 16:41 Tirso Julian is Referral Physician. le 16:54 Discontinued IV lock intact, bleeding controlled, pressure dressing applied, No hs1 redness/swelling at site. 21:40 T-Sheet-- Draft Copy was scanned into [employer] and attached to record. klr Administered Medications: 14:18 Drug: Piperacillin-Tazobactam 3.375 grams [piperacillin-tazobactam 3.375 gram ms2 intravenous solution] Route: IVPB; Infused Over: 30 mins; Site: left antecubital; 14:18 Drug: HYDROcodone-acetaminophen 1 tabs [hydrocodone 5 mg-acetaminophen 325 mg tablet (1 ms2 tabs)] Route: PO; Order Results: Lab Order: CBC with Diff; SPEC'M 12/08/16 13:55 Test: WHITE BLOOD COUNT; Value: 8.2; Range: 4.0-10.0; Units: K/mm3; Status: F Test: RED BLOOD COUNT; Value: 5.46; Range: 4.30-6.10; Units: M/mm3; Status: F Test: HEMOGLOBIN; Value: 16.1; Range: 14.0-18.0; Units: g/dl; Status: F Test: HEMATOCRIT; Value: 47.6; Range: 42.0-52.0; Units: %; Status: F Test: MEAN CORPUSCULAR VOLUME; Value: 87.1; Range: 80.0-96.0; Units: fl; Status: F Test: MEAN CORPUSCULAR HEMOGLOBIN; Value: 29.5; Range: 27.0-33.0; Units: pg; Status: F Test: MEAN CORPUSCULAR HGB CONC; Value: 33.9; Range: 32.0-36.5; Units: g/dl; Status: F Test: RED CELL DISTRIBUTION WIDTH; Value: 12.9; Range: 11.5-14.5; Units: %; Status: F Test: PLATELET COUNT, AUTOMATED; Value: 280; Range: 150-450; Units: k/mm3; Status: F Test: NEUTROPHILS %; Value: 56.7; Range: 36.0-66.0; Units: %; Status: F Test: LYMPH %; Value: 29.1; Range: 24.0-44.0; Units: %; Status: F Test: MONO %; Value: 5.6; Range: 0.0-5.0; Abnormal: Above high normal; Units: %; Status: F Test: EOS %; Value: 5.1; Range: 0.0-3.0; Abnormal: Above high normal; Units: %; Status: F Test: BASO %; Value: 1.3; Range: 0.0-1.0; Abnormal: Above high normal; Units: %; Status: F Test: LARGE UNSTAINED CELL %; Value: 2.2; Range: 0.0-4.0; Units: %; Status: F Test: NEUTROPHILS #; Value: 4.6; Range: 1.8-7.7; Units: K/mm3; Status: F Test: LYMPH #; Value: 2.4; Range: 1.5-4.5; Units: K/mm3; Status: F Test: MONO #; Value: 0.5; Range: 0.0-0.8; Units: K/mm3; Status: F Test: EOS #; Value: 0.4; Range: 0.0-0.50; Units: K/mm3; Status: F Test: BASO #; Value: 0.1; Range: 0.0-0.2; Units: K/mm3; Status: F Test: LARGE UNSTAINED CELL #; Value: 0.2; Range: 0.0-0.4; Units: K/mm3; Status: F Lab Order: CRP; SPEC'M 12/08/16 13:55 Test: C REACTIVE PROTEIN QUANTITATIV; Value: 0.62; Range: 0.00-0.30; Abnormal: Above high normal; Units: MG/DL; Status: F Lab Order: ESR; SPEC'M 12/08/16 13:55 Test: ERYTHROCYTE SEDIMENTATION RATE; Value: 2; Range: 0-15; Units: mm/hr; Status: F Radiology Order: CT Neck With Contrast Test: CT Neck With Contrast REASON FOR EXAMINATION: right facial swelling, dev. trismus; Clinical: Right facial swelling.; ; Technique: Axial contrast enhanced images from the skull base to the thoracic; inlet with coronal and sagittal re-formations using 100 ml Isovue 370 intravenous; contrast material.; ; Findings:; The subcutaneous tissues appear relatively symmetric and normal by CT evaluation.; No significant subcutaneous infiltration / stranding or edematous changes are; appreciated. The bilateral periorbital soft tissues are symmetric and normal.; Orbits including globes and intraconal contents are symmetric and unremarkable.; The nasopharyngeal through hypopharyngeal airway appears patent, midline and; without associated mass effect. No parapharyngeal or retropharyngeal soft tissue; swelling is appreciated. The bilateral parapharyngeal fat pads are symmetric and; normal. Cervical chain lymph nodes appear mildly prominent measuring up to 13 mm; maximal diameter and should be correlated with physical examination to exclude an; infectious process. The parotid, submandibular, and submental glands are; symmetric and normal. The vasculature is symmetric and unremarkable. The; osseous structures are intact without evidence for acute fracture or dislocation.; Sinuses demonstrate minimal mucosal thickening to the right ethmoid and sphenoid; sinus minimal thickening to the left maxillary sinus suggesting mild chronic; sinus disease. No fluid level is appreciated.; ; Impression:; Mild prominent bilateral cervical lymph nodes should be correlated with physical; examination.; Otherwise normal examination.; ; ; Signed by; Kirill Delgado MD 12/08/2016 02:27 P; Outcome: 16:41 Discharge ordered by Provider. le 16:55 Discharge Assessment: Patient awake, alert and oriented x 3. No cognitive and/or hs1 functional deficits noted. Patient verbalized understanding of disposition instructions. patient administered narcotics - yes. Pt provided with safe discharge. The following High Risk Discharge criteria are identified: None. Discharged to home ambulatory, with family. Condition: stable. Discharge instructions given to patient, family, Instructed on discharge instructions, follow up and referral plans. medication usage, Demonstrated understanding of instructions, medications, Pt was receptive of discharge instructions/ teaching. Prescriptions given X 2. CT Study completed. Property sent home with patient. 16:56 Patient left the ED. hs1 Signatures: Dispatcher [employer] EDMS Ru Boston RN RN ms2 Ramya Gibson RN RN mcp Chica Green, MARKETING WRITER MARKETING WRITER Perla Cabrera RN RN rs3 Josetet Chacon RN RN hs1 Lora Lynn, SNATH HANDLE ASSEMBLER SNATH HANDLE ASSEMBLER Leticia Mcmullen RN RN ms18 Wiley Hoang, SNATH HANDLE ASSEMBLER SNATH HANDLE ASSEMBLER Silvana Mays Kathie klr Chart Complete MTDD
--- NOTE | 2016-12-10 17:57 | EDDOCDS ---
Physician Documentation [facility] Name: Dhruv William Age: 36 yrs Sex: Male : 1980 Arrival Date: 12/08/2016 Time: 12:37 Bed I9 / 22 Private MD: NO PRIMARY PHYSICIAN, . Disposition: 12/08 16:44 Critical Care: Critical care not applicable. le Disposition: 12/08/16 16:41 Discharged to Home/Self Care. Impression: Jaw pain, Dental caries. - Condition is Stable. - Discharge Instructions: Dental Pain. - Prescriptions for Augmentin 875- 125 mg Oral Tablet - take 1 tablet by ORAL route every 12 hours for 10 days; 20 tablet. [place] 5- 325 mg Oral Tablet - take 1 tablet by ORAL route every 6 hours As needed MDD: 4 tabs; 6 tablet. - Medication Reconciliation, Local Pharmacy Hours, Dental Referral List form. - Follow up: Tirso Julian; When: Call to arrange an appointment; Reason: Recheck today's complaints, Continuance of care. - Problem is an ongoing problem. - Symptoms have improved. - Notes: You need to take the antibiotic as directed. DO NOT SKIP DOSES! Use the referral list, to get a dental appointment. Make this appointment even if they say it's going to be "weeks". Return to the ED for worsening pain, inability to open your mouth more than the width of 2 finders, worsening swelling, fever >101.5, difficulty swallowing/drooling, difficulty breathing or any other concerns Historical: - Allergies: no known allergies; - Home Meds: 1. none - PMHx: none; - PSHx: Appendectomy; - Social history: Smoking status: Patient uses tobacco products, light tobacco smoker. No barriers to communication noted, The patient speaks fluent Dutch. - Family history: No immediate family members are acutely ill. - : The pt / caregiver states he / she is not on anticoagulants. Home medication list is obtained from the patient. - Exposure Risk Screening:: None identified. Vital Signs: 12:39 BP 157 / 95; Pulse 82; Resp 18; Temp 98.8; Pulse Ox 99% ; Weight 94.8 kg / 209 lbs; elp Height 5 ft. 11 in. (180.34 cm); Pain 10/10; 15:47 BP 154 / 84 RA Sitting (auto/reg); Pulse 81; Resp 18; Temp 98.0(TE); Pulse Ox 98% on jrd R/A; Pain 8/10; 16:55 BP 164 / 94; Pulse 18; Resp 79; Temp 97.8; Pulse Ox 98% ; Pain 2/10; hs1 12:39 Body Mass Index 29.15 (94.80 kg, 180.34 cm) elp MDM: 13:46 IV Saline Lock ordered. le 13:46 Piperacillin-Tazobactam 3.375 grams IVPB once over 30 mins; dilute in 50mL of NS or D5W le ordered. 13:46 HYDROcodone-acetaminophen 5 mg-325 mg 1 tabs PO once ordered. le 13:47 CT Neck With Contrast Ordered. EDMS 13:47 CBC with Diff Ordered. EDMS 13:47 CRP Ordered. EDMS 13:47 ESR Ordered. EDMS 14:50 CBC with Diff Reviewed. le 14:50 CRP Reviewed. le 15:11 [facility] Payment Agreement was scanned into [employer] and attached to record. jp5 15:11 Financial registration complete. jp5 16:39 CBC with Diff Reviewed. le 16:39 ESR Reviewed. le 16:39 CT Neck With Contrast Reviewed. le 21:40 T-Sheet-- Draft Copy was scanned into [employer] and attached to record. klr Administered Medications: 14:18 Drug: Piperacillin-Tazobactam 3.375 grams [piperacillin-tazobactam 3.375 gram ms2 intravenous solution] Route: IVPB; Infused Over: 30 mins; Site: left antecubital; 14:18 Drug: HYDROcodone-acetaminophen 1 tabs [hydrocodone 5 mg-acetaminophen 325 mg tablet (1 ms2 tabs)] Route: PO; Signatures: Dispatcher [employer] EDMS Chica Green, SENIOR BRANCH MANAGER SENIOR BRANCH MANAGER Perla Cabrera RN RN rs3 Josette Chacon RN RN hs1 Silvana Velazco jp5 Flora Wynne Michele RN ms2 The chart was reviewed and I authenticate all verbal orders and agree with the evaluation and treatment provided.Attachments: 15:11 [facility] Payment Agreement 5 21:40 T-Sheet-- Draft Copy klr Chart Complete MTDD
--- NOTE | 2016-12-10 17:57 | EDDOCDS ---
Physician Documentation [facility] Name: Dhruv William Age: 36 yrs Sex: Male : 1980 Arrival Date: 12/08/2016 Time: 12:37 Bed I9 / 22 Private MD: NO PRIMARY PHYSICIAN, . Disposition: 12/08 16:44 Critical Care: Critical care not applicable. le Disposition: 12/08/16 16:41 Discharged to Home/Self Care. Impression: Jaw pain, Dental caries. - Condition is Stable. - Discharge Instructions: Dental Pain. - Prescriptions for Augmentin 875- 125 mg Oral Tablet - take 1 tablet by ORAL route every 12 hours for 10 days; 20 tablet. [place] 5- 325 mg Oral Tablet - take 1 tablet by ORAL route every 6 hours As needed MDD: 4 tabs; 6 tablet. - Medication Reconciliation, Local Pharmacy Hours, Dental Referral List form. - Follow up: Tirso Julian; When: Call to arrange an appointment; Reason: Recheck today's complaints, Continuance of care. - Problem is an ongoing problem. - Symptoms have improved. - Notes: You need to take the antibiotic as directed. DO NOT SKIP DOSES! Use the referral list, to get a dental appointment. Make this appointment even if they say it's going to be "weeks". Return to the ED for worsening pain, inability to open your mouth more than the width of 2 finders, worsening swelling, fever >101.5, difficulty swallowing/drooling, difficulty breathing or any other concerns Historical: - Allergies: no known allergies; - Home Meds: 1. none - PMHx: none; - PSHx: Appendectomy; - Social history: Smoking status: Patient uses tobacco products, light tobacco smoker. No barriers to communication noted, The patient speaks fluent Zambian. - Family history: No immediate family members are acutely ill. - : The pt / caregiver states he / she is not on anticoagulants. Home medication list is obtained from the patient. - Exposure Risk Screening:: None identified. Vital Signs: 12:39 BP 157 / 95; Pulse 82; Resp 18; Temp 98.8; Pulse Ox 99% ; Weight 94.8 kg / 209 lbs; elp Height 5 ft. 11 in. (180.34 cm); Pain 10/10; 15:47 BP 154 / 84 RA Sitting (auto/reg); Pulse 81; Resp 18; Temp 98.0(TE); Pulse Ox 98% on jrd R/A; Pain 8/10; 16:55 BP 164 / 94; Pulse 18; Resp 79; Temp 97.8; Pulse Ox 98% ; Pain 2/10; hs1 12:39 Body Mass Index 29.15 (94.80 kg, 180.34 cm) elp MDM: 13:46 IV Saline Lock ordered. le 13:46 Piperacillin-Tazobactam 3.375 grams IVPB once over 30 mins; dilute in 50mL of NS or D5W le ordered. 13:46 HYDROcodone-acetaminophen 5 mg-325 mg 1 tabs PO once ordered. le 13:47 CT Neck With Contrast Ordered. EDMS 13:47 CBC with Diff Ordered. EDMS 13:47 CRP Ordered. EDMS 13:47 ESR Ordered. EDMS 14:50 CBC with Diff Reviewed. le 14:50 CRP Reviewed. le 15:11 [facility] Payment Agreement was scanned into [employer] and attached to record. jp5 15:11 Financial registration complete. jp5 16:39 CBC with Diff Reviewed. le 16:39 ESR Reviewed. le 16:39 CT Neck With Contrast Reviewed. le 21:40 T-Sheet-- Draft Copy was scanned into [employer] and attached to record. klr Administered Medications: 14:18 Drug: Piperacillin-Tazobactam 3.375 grams [piperacillin-tazobactam 3.375 gram ms2 intravenous solution] Route: IVPB; Infused Over: 30 mins; Site: left antecubital; 14:18 Drug: HYDROcodone-acetaminophen 1 tabs [hydrocodone 5 mg-acetaminophen 325 mg tablet (1 ms2 tabs)] Route: PO; Signatures: Dispatcher [employer] EDMS Chica Green, PLANT NURSERY WORKER PLANT NURSERY WORKER Perla Cabrera RN RN rs3 Josette Chacon RN RN hs1 Silvana Velazco jp5 Flora Wynne Michele RN ms2 The chart was reviewed and I authenticate all verbal orders and agree with the evaluation and treatment provided.Attachments: 15:11 [facility] Payment Agreement 5 21:40 T-Sheet-- Draft Copy klr Chart Complete MTDD
== END 2016-12-08 16:56 | disposition home or self-care (01) ==
LOC: M ED 12:37
DX: R68.84 Jaw pain (principal); K08.9 Disorder of teeth and supporting structures, unspecified; F17.210 Nicotine dependence, cigarettes, uncomplicated
CPT/HCPCS: 36415; 70491; 85025; 85652; 86140; 96374; 99284; J2543; Q9967

== ENCOUNTER 2017-02-24 11:59 | Emergency (ER) | payer OTHER ==
[~2017-02-24] VITALS: Ht 177.8 cm; Wt 85.7 kg
[2017-02-24 12:00] VITALS: BP 123/86
[2017-02-24] MEDS ORDERED: NORC1TAB4 PO (13:42)
[2017-02-24] MEDS ORDERED: PENI250T57 PO (13:42)
== END 2017-02-24 13:57 | disposition home or self-care (01) ==
LOC: M ED 13:48
DX: K02.9 Dental caries, unspecified (principal); R68.84 Jaw pain; G50.1 Atypical facial pain; K08.9 Disorder of teeth and supporting structures, unspecified; Z88.5 Allergy status to narcotic agent; Z88.8 Allergy status to other drugs, medicaments and biological substances

== ENCOUNTER 2017-03-13 21:24 | Emergency (ER) | payer OTHER ==
[~2017-03-13] VITALS: Ht 180.3 cm; Wt 86.2 kg
[~2017-03-13 21:24] MED LIST: NORC1TAB4 PO; PENI250T57 PO
[2017-03-13 21:25] VITALS: BP_DIAS 98
[2017-03-13] MEDS ORDERED: PERCOCET 5MG/325MG TAB PO ONE (22:30)
[2017-03-13] MEDS ORDERED: AUGMENTIN 875 MG TAB PO ONE (22:30)
[2017-03-13] MEDS ORDERED: OXYC1TAB23 PO (22:32)
[2017-03-13] MEDS ORDERED: AUGM875T27 PO (22:32)
[2017-03-13 22:45] VITALS: BP_SYST 135
== END 2017-03-13 22:48 | disposition home or self-care (01) ==
LOC: M ED 21:51
DX: K04.7 Periapical abscess without sinus (principal); K03.9 Disease of hard tissues of teeth, unspecified; G50.1 Atypical facial pain; F17.200 Nicotine dependence, unspecified, uncomplicated; Z88.5 Allergy status to narcotic agent

== ENCOUNTER 2017-04-01 15:44 | Emergency (ER) | payer OTHER ==
[~2017-04-01] VITALS: Ht 177.8 cm; Wt 90.7 kg
[~2017-04-01 15:44] MED LIST changes: +AUGM875T27 PO; +OXYC1TAB23 PO
[2017-04-01] MEDS ORDERED: CLINDAMYCIN 900 MG in APPROPRIATE DILUENT 1 EA IV ONE (17:15)
[2017-04-01] MEDS ORDERED: KETOROLAC 30 MG/ML VIAL (J1885) IV ONE (17:15)
[2017-04-01 17:28] LABS: BASO # 0.1 K/mm3 (0.0-0.2); EOS # 0.3 K/mm3 (0.0-0.50); LARGE UNSTAINED CELL # 0.1 K/mm3 (0.0-0.4); LARGE UNSTAINED CELL % 0.9 % (0.0-4.0); MEAN CORPUSCULAR HEMOGLOBIN 29.5 pg (27.0-33.0); MEAN CORPUSCULAR HGB CONC 33.6 g/dl (32.0-36.5); MEAN CORPUSCULAR VOLUME 87.7 fl (80.0-96.0); MONO # 0.6 K/mm3 (0.0-0.8); MONO % 4.3 % (0.0-5.0); NEUTROPHILS # 10.4 K/mm3 (1.8-7.7); NEUTROPHILS % 77.8 % (36.0-66.0); PLATELET COUNT, AUTOMATED 253 k/mm3 (150-450); RED CELL DISTRIBUTION WIDTH 13.2 % (11.5-14.5); WHITE BLOOD COUNT 13.3 K/mm3 (4.0-10.0)
[2017-04-01 17:58] LABS: ANION GAP 5 MEQ/L (8-16); BLOOD UREA NITROGEN 12 MG/DL (7-18); CALCIUM LEVEL 8.5 MG/DL (8.5-10.1); CARBON DIOXIDE LEVEL 30 MEQ/L (21-32); CHLORIDE LEVEL 104 MEQ/L (98-107); CREATININE FOR GFR 1.07 MG/DL (0.70-1.30); GLOMERULAR FILTRATION RATE > 60.0 (>60); GLUCOSE, FASTING 120 MG/DL (70-105); SODIUM LEVEL 139 MEQ/L (136-145)
[2017-04-01] MEDS ORDERED: ISOVUE-370 76% 100ML VIAL (Q9967) As Ordered ONE (18:08)
[2017-04-01 18:09] LABS: ERYTHROCYTE SEDIMENTATION RATE 1 mm/hr (0-15)
--- NOTE | 2017-04-01 19:00 | REPUSA ---
CT of the facial bones with contrast Clinical history: Pain, injury. Technique: Multiple axial CT images were obtained through the facial bones and paranasal sinuses util izing 3 mm axial slices after administration of nonionic intravenous contrast. Coronal and sagittal r econstructions were also obtained. Findings: The left maxillary sinus demonstrates mild mucosal thickening along the inferior border, ob structing the infundibulum of the left osteomeatal complex. The other visualized paranasal sinuses ar e clear. The right osteomeatal complex is patent. The nasal septum is midline. The visualized mastoi d air cells are clear. The osseous structures do not demonstrate any acute abnormalities. The superfi cial soft tissues are within normal limits.. The vascular structures demonstrate normal caliber and c ontour. Impression: 1. No acute fractures or traumatic injury. 2 Mild mucosal thickening in the inferior medial left maxillary sinus, partially obstructing the infu ndibulum of the left osteomeatal complex.
[2017-04-01] MEDS ORDERED: CLEO300C2 PO (19:19)
[2017-04-01] MEDS ORDERED: NAPR500T PO (19:19)
[2017-04-01 19:33] VITALS: BP 130/96
== END 2017-04-01 19:43 | disposition home or self-care (01) ==
LOC: M ED 17:07
DX: K04.7 Periapical abscess without sinus (principal); F17.200 Nicotine dependence, unspecified, uncomplicated; Z88.5 Allergy status to narcotic agent; Z88.8 Allergy status to other drugs, medicaments and biological substances
CPT/HCPCS: 70487; 80048; 85025; 85652; 86140; 96374; 96375; 99282; J1885; Q9967

== ENCOUNTER → 2017-05-07 | Outpatient (CLI) | payer OTHER ==
[~2017-05-07] MED LIST changes: +CLEO300C2 PO; +NAPR500T PO
--- NOTE | 2017-05-08 04:57 | REP ---
Clinical: Pain. Technique: Internal rotation, external rotation, and Y view of the right shoulder. Findings: Minimal cortical irregularity at the acromioclavicular joint as likely age-related and essentially age-appropriate. Remainder examination appears normal. No evidence for acute fracture or dislocation. Glenohumeral joint is unremarkable. Subacromial space is normal. Surrounding soft tissues are normal. Impression: 1. Minimal age-related degenerative changes suggested at the acromioclavicular joint. 2. Otherwise normal examination. Signed by Kirill Delgado MD 05/08/2017 04:49 A
--- NOTE | 2017-05-08 05:07 | REP ---
Clinical: thoracic pain. Technique: AP, lateral, and swimmers views. Findings: Alignment and kyphosis is maintained. Vertebral bodies intact. No acute fracture / compression injury or subluxation. No degenerative changes. Paravertebral soft tissues are normal. Impression: Normal thoracic spine series. Signed by Kirill Delgado MD 05/08/2017 04:59 A
--- NOTE | 2017-05-08 05:11 | REP ---
Clinical: Dorsalgia. Technique: AP, lateral, flexion/extension, bilateral oblique, and open-mouth views. Findings: Alignment and lordosis is maintained. There is no evidence for acute fracture / compression injury or subluxation. No significant degenerative changes are appreciated. Oblique views demonstrate patent neural foramen. Open mouth view demonstrates normal C1-C2 articulation and odontoid process although very subtle spurring along the inferolateral margin of the left C1-C2 articulation cannot be excluded. Impression: Normal, age-appropriate cervical spine series. As above. If the patient remains symptomatic consider MRI for further investigation. Signed by Kirill Delgado MD 05/08/2017 05:03 A
== END ==
LOC: M WUC 18:12
PROVIDERS: ATTEND Physician Assistant Medical
DX: M54.6 Pain in thoracic spine (principal)

== ENCOUNTER → 2017-05-21 | Outpatient (CLI) | payer OTHER ==
[~2017-05-21] MED LIST changes: -AUGM875T27 PO; +AUGM875T28 PO
[2017-05-21 17:42] LABS: ALBUMIN 4.2 GM/DL (3.2-5.2); ALBUMIN/GLOBULIN RATIO 1.35 (1.00-1.93); ALKALINE PHOSPHATASE 97 U/L (45-117); ALT/SGPT 43 U/L (12-78); ANION GAP 5 MEQ/L (8-16); AST/SGOT 21 U/L (15-37); BILIRUBIN,TOTAL 0.4 MG/DL (0.2-1.0); BLOOD UREA NITROGEN 13 MG/DL (7-18); CALCIUM LEVEL 9.1 MG/DL (8.5-10.1); CARBON DIOXIDE LEVEL 30 MEQ/L (21-32); CHLORIDE LEVEL 106 MEQ/L (98-107); CHOLESTEROL LEVEL 207 MG/DL (<200); CREATININE FOR GFR 0.93 MG/DL (0.70-1.30); FERRITIN 180 NG/ML (26-388); FREE T4 1.04 NG/DL (0.76-1.46); GLOMERULAR FILTRATION RATE > 60.0 (>60); GLUCOSE, FASTING 91 MG/DL (70-105); PERCENT SATURATION 32.6 % (19.7-37.4); POTASSIUM SERUM 4.6 MEQ/L (3.5-5.1); SODIUM LEVEL 141 MEQ/L (136-145); TOTAL IRON BINDING CAPACITY 344 UG/DL (250-450); TOTAL PROTEIN 7.3 GM/DL (6.4-8.2); TRIGLYCERIDES LEVEL 170 MG/DL (<150)
[2017-05-21 19:58] LABS: BASO # 0.1 K/mm3 (0.0-0.2); BASO % 1.3 % (0.0-1.0); EOS # 0.3 K/mm3 (0.0-0.50); EOS % 2.8 % (0.0-3.0); LARGE UNSTAINED CELL # 0.2 K/mm3 (0.0-0.4); LARGE UNSTAINED CELL % 1.8 % (0.0-4.0); LYMPH # 2.4 K/mm3 (1.5-4.5); LYMPH % 23.5 % (24.0-44.0); MEAN CORPUSCULAR HEMOGLOBIN 30.1 pg (27.0-33.0); MEAN CORPUSCULAR HGB CONC 33.5 g/dl (32.0-36.5); MEAN CORPUSCULAR VOLUME 90.1 fl (80.0-96.0); MONO # 0.4 K/mm3 (0.0-0.8); NEUTROPHILS # 6.8 K/mm3 (1.8-7.7); NEUTROPHILS % 66.5 % (36.0-66.0); PLATELET COUNT, AUTOMATED 249 k/mm3 (150-450); RED CELL DISTRIBUTION WIDTH 13.1 % (11.5-14.5); WHITE BLOOD COUNT 10.2 K/mm3 (4.0-10.0)
[2017-05-21 21:04] LABS: ERYTHROCYTE SEDIMENTATION RATE 3 mm/hr (0-15)
== END ==
LOC: M WUC 13:42
PROVIDERS: ATTEND Physician Assistant Medical
DX: M25.511 Pain in right shoulder (principal); K21.9 Gastro-esophageal reflux disease without esophagitis; E66.9 Obesity, unspecified

== ENCOUNTER → 2017-12-25 | Outpatient (CLI) | payer OTHER ==
[2017-12-25 14:54] LABS: HEMATOCRIT 45.2 % (42.0-52.0); HEMOGLOBIN 14.9 g/dl (14.0-18.0); MEAN CORPUSCULAR HEMOGLOBIN 28.6 pg (27.0-33.0); MEAN CORPUSCULAR VOLUME 86.8 fl (80.0-96.0); PLATELET COUNT, AUTOMATED 283 10^3/uL (150-450); RED BLOOD COUNT 5.21 10^6/uL (4.30-6.10); RED CELL DISTRIBUTION WIDTH 14.4 % (11.5-14.5); WHITE BLOOD COUNT 6.2 10^3/uL (4.0-10.0)
[2017-12-25 15:15] LABS: TOTAL 25(OH) VITAMIN D 21.5 NG/ML (30.0-100.0)
[2017-12-25 15:37] LABS: ESTIMATED AVERAGE GLUCOSE 114 MG/DL (60-110); HEMOGLOBIN A1c 5.6 %
[2017-12-25 15:42] LABS: ERYTHROCYTE SEDIMENTATION RATE 1 mm/hr (0-15)
[2017-12-25 16:16] LABS: ALBUMIN/GLOBULIN RATIO 1.38 (1.00-1.93); ALKALINE PHOSPHATASE 90 U/L (45-117); ALT/SGPT 38 U/L (12-78); ANION GAP 5 MEQ/L (8-16); AST/SGOT 35 U/L (7-37); BILIRUBIN,TOTAL 0.8 MG/DL (0.2-1.0); BLOOD UREA NITROGEN 12 MG/DL (7-18); CARBON DIOXIDE LEVEL 30 MEQ/L (21-32); CHLORIDE LEVEL 104 MEQ/L (98-107); CHOLESTEROL LEVEL 183 MG/DL (<200); CHOLESTEROL RISK RATIO 3.734 (<5); CREATININE FOR GFR 0.91 MG/DL (0.70-1.30); GLOMERULAR FILTRATION RATE > 60.0 (>60); GLUCOSE, FASTING 119 MG/DL (70-100); HDL CHOLESTEROL 49 MG/DL (>40); LDL CHOLESTEROL 119.6 MG/DL (<100); NON-HDL-C 134 MG/DL; POTASSIUM SERUM 4.9 MEQ/L (3.5-5.1); RHEUMATOID FACTOR QUANT < 10.0 IU/ML (0-15.0); SODIUM LEVEL 139 MEQ/L (136-145); THYROID STIMULATING HORMONE 0.411 uIU/ML (0.358-3.740); TOTAL PROTEIN 6.9 GM/DL (6.4-8.2); TRIGLYCERIDES LEVEL 72 MG/DL (<150)
== END ==
LOC: M WUC 09:02
DX: I10 Essential (primary) hypertension (principal); R53.83 Other fatigue
CPT/HCPCS: 84443

== ENCOUNTER 2018-06-05 21:46 | Emergency (ER) | payer OTHER | END 2018-06-06 00:20 | disposition home or self-care (01) | LOC: M ED 06-06 00:20 | DX: S90.01XA Contusion of right ankle, initial encounter (principal); W22.8XXA Striking against or struck by other objects, initial encounter; Y92.099 Unspecified place in other non-institutional residence as the place of occurrence of the external cause; Y93.9 Activity, unspecified; Y99.9 Unspecified external cause status; I10 Essential (primary) hypertension; K21.9 Gastro-esophageal reflux disease without esophagitis; Z72.0 Tobacco use; Z79.899 Other long term (current) drug therapy; Z88.6 Allergy status to analgesic agent; Z88.5 Allergy status to narcotic agent | CPT/HCPCS: 73610 ==

== ENCOUNTER 2019-01-08 11:03 | Emergency (ER) | payer OTHER ==
[~2019-01-08] VITALS: Ht 177.8 cm; Wt 100.0 kg
[2019-01-08 11:03] VITALS: BP 135/89
[~2019-01-08 11:03] MED LIST changes: +LISI10TA4; +NAPR-50 PO; -NAPR500T PO; +OMEP20CA3; +OXYCOD/APAP
[2019-01-08] MEDS ORDERED: METH20TA29 (11:09)
[2019-01-08] MEDS ORDERED: IBUP-1022 PO (12:05)
[2019-01-08] MEDS ORDERED: PENI500T PO (12:05)
== END 2019-01-08 12:13 | disposition home or self-care (01) ==
LOC: M ED 11:03
DX: K04.7 Periapical abscess without sinus (principal)

== ENCOUNTER 2019-04-29 08:39 | Emergency (ER) | payer OTHER ==
[~2019-04-29] VITALS: Ht 180.3 cm; Wt 101.7 kg
[2019-04-29 08:39] VITALS: BP 140/92
[~2019-04-29 08:39] MED LIST changes: +IBUP-1022 PO; +METH20TA29; -NAPR-50 PO; +NAPR-837 PO; -NORC1TAB4 PO; +NORC1TAB7 PO; +PENI500T PO
[2019-04-29] MEDS ORDERED: OXYC1TAB23 (08:51)
[2019-04-29] MEDS ORDERED: NAPR-837 PO (09:24)
[2019-04-29] MEDS ORDERED: CLIN150C14 PO (09:24)
[2019-04-29] MEDS ORDERED: MAGICMW SSP (09:25)
== END 2019-04-29 09:37 | disposition home or self-care (01) ==
LOC: M ED 08:39
DX: S02.5XXA Fracture of tooth (traumatic), initial encounter for closed fracture (principal); K08.89 Other specified disorders of teeth and supporting structures; K04.7 Periapical abscess without sinus; X58.XXXA Exposure to other specified factors, initial encounter; Y92.9 Unspecified place or not applicable; Y93.9 Activity, unspecified; Y99.9 Unspecified external cause status; Z72.0 Tobacco use; K21.9 Gastro-esophageal reflux disease without esophagitis; Z79.899 Other long term (current) drug therapy; Z88.6 Allergy status to analgesic agent; Z88.5 Allergy status to narcotic agent

== ENCOUNTER 2019-12-27 12:32 | Emergency (ER) | payer OTHER ==
[~2019-12-27] VITALS: Ht 180.3 cm; Wt 103.0 kg
[~2019-12-27 12:32] MED LIST changes: +CLIN150C14 PO; -LISI10TA4; +LISI10TA4 PO; +MAGICMW SSP; -METH20TA29; +METH20TA29 PO; +OMEP1CAP73 PO; -OMEP20CA3
[2019-12-27] MEDS ORDERED: CEPH500C PO (12:42)
[2019-12-27 15:47] LABS: BASO # 0.1 10^3/uL (0.0-0.2); BASO % 0.6 % (0.0-1.0); EOS # 0.1 10^3/uL (0.0-0.5); EOS % 0.5 % (0.0-3.0); HEMATOCRIT 45.6 % (42.0-52.0); HEMOGLOBIN 14.1 g/dl (13.5-17.5); LYMPH # 2.5 10^3/uL (1.5-5.0); LYMPH % 15.5 % (24.0-44.0); MEAN CORPUSCULAR HEMOGLOBIN 26.1 pg (27.0-33.0); MEAN CORPUSCULAR HGB CONC 30.9 g/dl (32.0-36.5); MEAN CORPUSCULAR VOLUME 84.4 fl (80.0-96.0); MONO # 0.8 10^3/uL (0.0-0.8); MONO % 4.8 % (0.0-5.0); NEUTROPHILS # 12.8 10^3/uL (1.5-8.5); NEUTROPHILS % 78.1 % (36.0-66.0); PLATELET COUNT, AUTOMATED 359 10^3/uL (150-450); WHITE BLOOD COUNT 16.3 10^3/uL (4.0-10.0)
[2019-12-27 16:07] LABS: ERYTHROCYTE SEDIMENTATION RATE 21 mm/hr (0-15)
[2019-12-27 16:11] LABS: BLOOD UREA NITROGEN 15 MG/DL (7-18); C REACTIVE PROTEIN QUANTITATIV 3.98 MG/DL (0.00-0.30); CALCIUM LEVEL 8.8 MG/DL (8.5-10.1); CARBON DIOXIDE LEVEL 29 MEQ/L (21-32); CHLORIDE LEVEL 104 MEQ/L (98-107); CREATININE FOR GFR 0.84 MG/DL (0.70-1.30); GLOMERULAR FILTRATION RATE > 60.0 (>60); GLUCOSE, FASTING 102 MG/DL (70-100); POTASSIUM SERUM 4.6 MEQ/L (3.5-5.1); SODIUM LEVEL 140 MEQ/L (136-145)
[2019-12-27 16:18] LABS: MONO REFLEX EBV COMP NEGATIVE (NEGATIVE)
[2019-12-27] MEDS ORDERED: ISOVUE-370 76% 100ML VIAL (Q9967) As Ordered ONE (16:43)
[2019-12-27] MEDS ORDERED: ONDANSETRON 4MG/2ML VIAL (J2405) As Ordered ONE (16:56)
[2019-12-27] MEDS ORDERED: ONDANSETRON 4MG/2ML VIAL (J2405) IV ONE (17:00)
[2019-12-27] MEDS ORDERED: AUGM875T28 PO (17:40)
[2019-12-27] MEDS ORDERED: dexameTHASONE 4 MG/ML 1ML VIAL (J1100) IV ONE (17:45)
--- NOTE | 2019-12-27 17:56 | REP ---
Soft-tissue neck CT study with IV contrast: History: Swollen tonsil. Difficulty swallowing. CT contrast dose: 75 ml of intravenous Isovue 370. Comparison CT study is from December 08, 2016. Comparison CT study is from July 11, [address] findings: Preliminary digital sheeting puller radiograph is unremarkable. Parotid and submandibular glands are normal and symmetric. Thyroid lobes are homogeneous and normal in size. There are scattered shoddy lymph nodes in the anterior and posterior lymph node chain bilaterally similar to the appearance and size on the prior study December 08, 2016. The tonsillar and adenoidal soft tissues are unremarkable. Retropharyngeal soft tissues are not widened. Epiglottis is normal in appearance. No glottic or subglottic airway lesion is seen. No vascular abnormality is observed. Impression: Mild bilateral anterior and posterior cervical lymphadenopathy essentially unchanged from December 08, 2016 and from the 2014 prior study. No abnormality is seen in either tonsil or in the retropharyngeal soft tissues. No abnormal fluid collection is seen. No acute abnormality. Electronically Signed by Bart Chauhan MD 12/27/2019 06:12 P
[2019-12-27 18:05] VITALS: BP 186/75
[2019-12-30 00:06] LABS: EBV AB TO NUCLEAR ANTIGEN <18.0 U/mL (0.0-17.9); EBV VIRAL CAPSID AG IgG >600.0 U/mL (0.0-17.9); EBV VIRAL CAPSID AG IgM <36.0 U/mL (0.0-35.9)
== END 2019-12-27 18:17 | disposition home or self-care (01) ==
LOC: M ED 12:32
DX: R13.10 Dysphagia, unspecified (principal); J02.9 Acute pharyngitis, unspecified; F17.200 Nicotine dependence, unspecified, uncomplicated; Z79.2 Long term (current) use of antibiotics; Z79.899 Other long term (current) drug therapy; Z88.6 Allergy status to analgesic agent; Z88.8 Allergy status to other drugs, medicaments and biological substances
CPT/HCPCS: 70491; 80048; 85025; 85652; 86140; 86308; 86664; 86665; 87880; 96374; 96375; 99284; J1100; J2405; Q9967

== ENCOUNTER → 2020-01-13 | Outpatient (CLI) | payer OTHER ==
[~2020-01-13] MED LIST changes: +CEPH500C PO; +NYST50SS PO
[2020-01-13 13:14] LABS: AMPHETAMINES LEVEL URINE NEGATIVE (NEGATIVE); BARBITURATES URINE NEGATIVE (NEGATIVE); BENZODIAZEPINES URINE NEGATIVE (NEGATIVE); CANNABINOIDS URINE NEGATIVE (NEGATIVE); COCAINE METABOLITE URINE NEGATIVE (NEGATIVE); METHADONE URINE NEGATIVE (NEGATIVE); OPIATES URINE POSITIVE (NEGATIVE); PHENCYCLIDINE URINE NEGATIVE (NEGATIVE)
== END ==
LOC: M LAB 11:21
PROVIDERS: ATTEND Family Medicine
DX: G89.29 Other chronic pain (principal)

== ENCOUNTER 2020-01-15 16:14 | Emergency (ER) | payer OTHER ==
[~2020-01-15] VITALS: Ht 175.3 cm; Wt 105.2 kg
[~2020-01-15 16:14] MED LIST changes: -NYST50SS PO
[2020-01-15] MEDS ORDERED: IPRATROPIUM 0.5MG/ALBUTEROL 2.5MG INH SOL UD 3ML (DUONEB)(J7620) NEB ONE (17:15)
[2020-01-15] MEDS ORDERED: methylPREDNISolone INJ 125 MG/2 ML VIAL (J2930) IV ONE (17:15)
[2020-01-15] MEDS ORDERED: NS 1,000 ML IV ONE (17:15)
[2020-01-15] MEDS ORDERED: NYSTATIN 500,000 U/5 ML SUSP UDC SS ONE (17:15)
[2020-01-15 17:49] LABS: HEMATOCRIT 44.5 % (42.0-52.0); HEMOGLOBIN 14.6 g/dl (13.5-17.5); MEAN CORPUSCULAR HEMOGLOBIN 26.5 pg (27.0-33.0); MEAN CORPUSCULAR HGB CONC 32.8 g/dl (32.0-36.5); MEAN CORPUSCULAR VOLUME 80.9 fl (80.0-96.0); PLATELET COUNT, AUTOMATED 235 10^3/uL (150-450)
[2020-01-15 17:53] LABS: WHITE BLOOD COUNT 19.9 10^3/uL (4.0-10.0)
[2020-01-15 18:00] LABS: INR 1.14; PROTHROMBIN TIME 14.3 SECONDS (11.8-14.0)
[2020-01-15 18:02] LABS: D-DIMER QUANT 1989.71 ng/ml (<500)
[2020-01-15 18:03] LABS: ATYPICAL LYMPH 37 % (0-5); BASOPHILS 1 % (0-1); EOSINOPHILS 2 % (0-3); LYMPHOCYTES 11 % (16-44); MONOCYTES 16 % (0-5); NEUTROPHILS 32 % (28-66)
[2020-01-15 18:05] LABS: MICROCYTOSIS 2+; OVALOCYTES 1+
[2020-01-15 18:06] LABS: PLATELET ESTIMATE NORMAL (NORMAL)
[2020-01-15 18:07] LABS: ERYTHROCYTE SEDIMENTATION RATE 2 mm/hr (0-15)
[2020-01-15 18:24] LABS: ALBUMIN 3.1 GM/DL (3.2-5.2); ALT/SGPT 104 U/L (12-78); BILIRUBIN,DIRECT 0.2 MG/DL (0.0-0.2); BILIRUBIN,TOTAL 0.4 MG/DL (0.2-1.0); BLOOD UREA NITROGEN 14 MG/DL (7-18); CALCIUM LEVEL 8.7 MG/DL (8.5-10.1); CARBON DIOXIDE LEVEL 30 MEQ/L (21-32); CHLORIDE LEVEL 98 MEQ/L (98-107); CK-MB VALUE MASS < 1.0 NG/ML (<3.6); CPK CREATINE PHOSPHOKINASE 42 U/L (39-308); CREATININE FOR GFR 1.06 MG/DL (0.70-1.30); GLOMERULAR FILTRATION RATE > 60.0 (>60); GLUCOSE, FASTING 108 MG/DL (70-100); MB/CK RELATIVE INDEX 2.38 (< OR =4); POTASSIUM SERUM 4.5 MEQ/L (3.5-5.1); SODIUM LEVEL 133 MEQ/L (136-145); TOTAL PROTEIN 6.5 GM/DL (6.4-8.2); TROPONIN I < 0.02 NG/ML (< 0.10)
[2020-01-15 18:25] LABS: NT-PRO BNP 54 PG/ML (<125); THYROID STIMULATING HORMONE 0.389 uIU/ML (0.358-3.740); THYROXINE (T4) 9.1 UG/DL (4.5-12.0)
[2020-01-15] MEDS ORDERED: ISOVUE-370 76% 100ML VIAL (Q9967) As Ordered ONE (18:28)
[2020-01-15] MEDS ORDERED: ONDANSETRON 4MG/2ML VIAL (J2405) IV ONE (18:45)
--- NOTE | 2020-01-15 19:26 | REPVR ---
PROCEDURE INFORMATION: Exam: CT Angiography Chest With Contrast Exam date and time: 01/15/2020 6:32 PM Age: 39 years old Clinical indication: Shortness of breath; Additional info: Cp/sob TECHNIQUE: Imaging protocol: Computed tomographic angiography of the chest with intravenous contrast. 3D rendering: MIP and/or 3D reconstructed images were created by the technologist. Radiation optimization: All CT scans at this facility use at least one of these dose optimization techniques: automated exposure control; mA and/or kV adjustment per patient size (includes targeted exams where dose is matched to clinical indication); or iterative reconstruction. Contrast material: ISOVUE 370; Contrast volume: 100 ml; Contrast route: IV; COMPARISON: CR Chest, 2 view PA, Lat 01/15/2020 5:21 PM FINDINGS: Pulmonary arteries: There are no pulmonary emboli. Aorta: There is no aortic dissection or aneurysm. Lungs: Mild atelectasis left lung base. Minimal apical pleural parenchymal scarring on the right. 3.8 mm noncalcified nodule right lower lobe. Pleural space: See Lungs Finding. Heart: Unremarkable. No cardiomegaly. No pericardial effusion. Lymph nodes: Unremarkable. No enlarged lymph nodes. Bones/joints: Unremarkable. No acute fracture. Soft tissues: Unremarkable. IMPRESSION: 1. 3.8 mm noncalcified nodule right lower lobe. Nodule slightly larger than demonstrated in 2015.For patients at low risk (minimal or absent history of smoking and of other known risk factors), no routine follow-up is indicated. For patients at high risk (history of smoking or of other known risk factors), consider optional CT at 12 months. (Elena et al., Fleischner Society, 2017). 2. There is no aortic dissection or aneurysm. 3. There are no pulmonary emboli. Electronically signed by: Vipin Sanches On 01/15/2020 19:25:49 PM
--- NOTE | 2020-01-15 19:30 | REPVR ---
PROCEDURE INFORMATION: Exam: CT Abdomen And Pelvis With Contrast Exam date and time: 01/15/2020 6:32 PM Age: 39 years old Clinical indication: Abnormal findings; Abnormal lab test; Elevated liver enzymes; Additional info: Difficulty swallowing/elevated lfts TECHNIQUE: Imaging protocol: Computed tomography of the abdomen and pelvis with intravenous contrast. Radiation optimization: All CT scans at this facility use at least one of these dose optimization techniques: automated exposure control; mA and/or kV adjustment per patient size (includes targeted exams where dose is matched to clinical indication); or iterative reconstruction. Contrast material: ISOVUE 370; Contrast volume: 100 ml; Contrast route: IV; COMPARISON: CT ABD PELVIS W/O CONTRAST 07/10/2015 5:18 PM FINDINGS: Lungs: Left lower lobe atelectasis. Liver: Normal. No mass. Gallbladder and bile ducts: Normal. No calcified stones. No ductal dilation. Pancreas: Normal. No ductal dilation. Spleen: There is mild splenomegaly with a maximum span of 14.6 centimeters. No focal abnormalities demonstrated. Adrenals: Normal. No mass. Kidneys and ureters: Normal. No hydronephrosis. Stomach and bowel: There is modest increased feces throughout the colon consistent with constipation. Appendix: No evidence of appendicitis. Intraperitoneal space: Unremarkable. No free air. No significant fluid collection. Vasculature: Unremarkable. No abdominal aortic aneurysm. Lymph nodes: Unremarkable. No enlarged lymph nodes. Bladder: Unremarkable as visualized. Reproductive: Unremarkable as visualized. Bones/joints: Moderate central spinal stenosis L3-L4 and L4-L5. Bulging annulus L5-S1 without spinal stenosis. Soft tissues: Unremarkable. IMPRESSION: 1. There is mild splenomegaly with a maximum span of 14.6 centimeters. No focal abnormalities demonstrated. 2. There is modest increased feces throughout the colon consistent with constipation. Electronically signed by: Vipin Sanches On 01/15/2020 19:30:30 PM
[2020-01-15] MEDS ORDERED: GI COCKTAIL 50ML BTL(HYOSCYAMINE/MAALOX/LIDOCAINE VISCOUS)(1:3:1) PO ONE (19:45)
[2020-01-15] MEDS ORDERED: NYST50SS PO (19:49)
[2020-01-15] MEDS ORDERED: MAGICMW SSP (19:49)
[2020-01-15 19:57] LABS: MONO REFLEX EBV COMP NEGATIVE (NEGATIVE)
[2020-01-15 20:04] VITALS: BP 138/75
--- NOTE | 2020-01-16 09:02 | REP ---
PA and lateral chest: Comparison is 07/10/2015. The lung meyer are clear. The cardiac size is normal. The danial, mediastinum, and skeletal structures are unremarkable. Impression: Negative PA and lateral chest. There is no interval change. Electronically Signed by Jacky Flowers MD 01/16/2020 08:54 A
--- NOTE | 2020-01-16 20:49 | ECGEPIP ---
[facility] - ED Test Date: 2020-01-15 Pat Name: RAY GUARDADO Department: Room: - Gender: Male Utility Mechanic: : 1980 Requested By: CELESTE CASILLAS PA-C. Order Number: [id number] Reading MD: Magda Tsang Measurements Intervals [place] Rate: 102 P: 58 AL: 131 QRS: 14 QRSD: 98 T: 34 QT: 321 QTc: 418 Interpretive Statements SINUS TACHYCARDIA ABNORMAL RHYTHM ECG NO PRIOR Electronically Signed on 01-16-2020 20:48:52 EST by Magda Tsang
--- NOTE | 2020-01-17 09:33 | ED PDOC ---
Post-Departure Follow-Up dr chang faxed formal report of cta chest for fu Duglas Ventura MD Jan 17, 2020 09:33
--- NOTE | 2020-01-17 09:34 | ED PDOC ---
Post-Departure Follow-Up ct abd/p for fu also faxed to dr chang. Duglas Ventura MD Jan 17, 2020 09:34
[2020-01-18 14:16] LABS: EBV AB TO NUCLEAR ANTIGEN <18.0 U/mL (0.0-17.9); EBV VIRAL CAPSID AG IgG >600.0 U/mL (0.0-17.9); EBV VIRAL CAPSID AG IgM <36.0 U/mL (0.0-35.9)
== END 2020-01-15 20:08 | disposition home or self-care (01) ==
LOC: M ED 16:14
DX: R13.10 Dysphagia, unspecified (principal); B37.89 Other sites of candidiasis; R07.89 Other chest pain; K59.00 Constipation, unspecified; R91.1 Solitary pulmonary nodule; R94.31 Abnormal electrocardiogram [ECG] [EKG]; I10 Essential (primary) hypertension; K21.9 Gastro-esophageal reflux disease without esophagitis; F17.210 Nicotine dependence, cigarettes, uncomplicated; Z79.899 Other long term (current) drug therapy; Z88.8 Allergy status to other drugs, medicaments and biological substances; Z88.5 Allergy status to narcotic agent
CPT/HCPCS: 71046; 71275; 74177; 80048; 80076; 82550; 82553; 83605; 83880; 84436; 84443; 85025; 85379; 85610; 85652; 86308; 86664; 86665; 87040; 93005; 94640; 96374; 96375; 99284; J2405; J2930; Q9967

== ENCOUNTER 2020-01-23 03:54 | Emergency (ER) | payer OTHER ==
[~2020-01-23 03:54] MED LIST changes: +NYST50SS PO
== END 2020-01-23 04:00 | disposition left against medical advice (07) ==
LOC: M ED 03:54
DX: Z53.21 Procedure and treatment not carried out due to patient leaving prior to being seen by health care provider (principal)

== ENCOUNTER → 2020-07-10 | Outpatient (CLI) | payer OTHER | LOC: M PAIN 10:45 | PROVIDERS: ATTEND Family Medicine | DX: M54.5 Low back pain (principal); M25.519 Pain in unspecified shoulder ==

== ENCOUNTER → 2020-08-11 | Outpatient (CLI) | payer OTHER | LOC: M PAIN 09:28 | PROVIDERS: ATTEND Family Medicine | DX: M25.511 Pain in right shoulder (principal) ==

== ENCOUNTER → 2021-01-09 | Outpatient (CLI) | payer OTHER ==
[~2021-01-09] MED LIST changes: -CLIN150C14 PO; +CLIN150C15 PO; +LISI10TA22 PO; -LISI10TA4 PO
== END ==
LOC: M WUC 10:09
PROVIDERS: ATTEND Family Medicine
DX: F90.9 Attention-deficit hyperactivity disorder, unspecified type (principal); Z79.899 Other long term (current) drug therapy

== ENCOUNTER → 2021-02-05 | Outpatient (CLI) | payer OTHER ==
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
== END ==
LOC: M PAIN 14:45
PROVIDERS: ATTEND Family Medicine
DX: M54.9 Dorsalgia, unspecified (principal); M25.511 Pain in right shoulder; K02.9 Dental caries, unspecified; K21.9 Gastro-esophageal reflux disease without esophagitis; F17.210 Nicotine dependence, cigarettes, uncomplicated; Z79.891 Long term (current) use of opiate analgesic; Z79.899 Other long term (current) drug therapy; Z88.5 Allergy status to narcotic agent

== ENCOUNTER → 2021-05-02 | Outpatient (CLI) | payer OTHER ==
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
== END ==
LOC: M PAIN 14:30
PROVIDERS: ATTEND Family Medicine
DX: M25.511 Pain in right shoulder (principal); M54.9 Dorsalgia, unspecified; K21.9 Gastro-esophageal reflux disease without esophagitis; F17.210 Nicotine dependence, cigarettes, uncomplicated; Z79.891 Long term (current) use of opiate analgesic; Z79.899 Other long term (current) drug therapy; Z88.5 Allergy status to narcotic agent

== ENCOUNTER → 2021-09-19 | Outpatient (CLI) | payer OTHER ==
[~2021-09-19] MED LIST changes: -CLIN150C15 PO; +CLIN150C17 PO
== END ==
LOC: M PAIN 14:45
PROVIDERS: ATTEND Anesthesiology
DX: M54.50 Low back pain, unspecified (principal); M25.511 Pain in right shoulder; K21.9 Gastro-esophageal reflux disease without esophagitis; Z79.891 Long term (current) use of opiate analgesic; Z79.899 Other long term (current) drug therapy; F17.210 Nicotine dependence, cigarettes, uncomplicated; Z88.5 Allergy status to narcotic agent

== ENCOUNTER → 2022-03-18 | Outpatient (REF) | payer OTHER | LOC: M LAB REF 14:10 | PROVIDERS: ATTEND Family Medicine | DX: Z51.81 Encounter for therapeutic drug level monitoring (principal); F90.9 Attention-deficit hyperactivity disorder, unspecified type; Z79.899 Other long term (current) drug therapy ==